=== PATIENT | male | born 1965 | race Caucasian/White ===

== ENCOUNTER 2020-10-13 11:43 | Emergency (ER) | payer BC ==
[2020-10-13 11:55] VITALS: TEMP 98.2
--- NOTE | 2020-10-13 13:05 | XR ---
EXAMINATION TYPE: XR shoulder complete LT DATE OF EXAM: 10/13/2020 COMPARISON: NONE HISTORY: Pain TECHNIQUE: Three views are submitted. FINDINGS: The osseous structures are intact. There is no acute fracture or dislocation. The AC joint is maint ained. IMPRESSION: 1. No acute process.
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
[2020-10-13 13:53] VITALS: BP 124/78; PULSE 57; RESP 18
== END 2020-10-13 13:53 | disposition home or self-care (01) ==
LOC: EC 11:43
DX: S46.912A Strain of unspecified muscle, fascia and tendon at shoulder and upper arm level, left arm, initial encounter (principal); S80.212A Abrasion, left knee, initial encounter; E78.5 Hyperlipidemia, unspecified; V18.4XXA Pedal cycle driver injured in noncollision transport accident in traffic accident, initial encounter; Y92.410 Unspecified street and highway as the place of occurrence of the external cause
CPT/HCPCS: 99284